=== PATIENT | male | born 1985 | race Caucasian/White ===

== ENCOUNTER 2021-06-25 10:49 | Emergency (ER) | payer OTHER ==
[~2021-06-25] VITALS: Ht 177.8 cm; Wt 97.5 kg
[~2021-06-25 10:49] MED LIST: AVAPRO150 MG; AVAPRO300 MG; COZAAR50 MG; LEVSIN0.125 MG PO; PROTONIX40 MG PO
== END 2021-06-25 14:19 | disposition home or self-care (01) ==
LOC: ER 10:49
DX: R42 Dizziness and giddiness (principal); I10 Essential (primary) hypertension

== ENCOUNTER 2022-07-25 08:58 | Emergency (ER) | payer OTHER ==
[~2022-07-25] VITALS: Ht 177.8 cm; Wt 85.3 kg
== END 2022-07-25 09:53 | disposition home or self-care (01) ==
LOC: ER 08:58
DX: J32.9 Chronic sinusitis, unspecified (principal)

== ENCOUNTER 2023-06-11 12:10 | Emergency (ER) | payer OTHER ==
[~2023-06-11] VITALS: Ht 177.8 cm; Wt 85.3 kg
[2023-06-11] MEDS ORDERED: KETOROLAC TROMETHAMINE 30 MG VIAL IM STA (12:28)
== END 2023-06-11 12:45 | disposition home or self-care (01) ==
LOC: ER 12:11
DX: M25.512 Pain in left shoulder (principal)

== ENCOUNTER 2024-06-20 08:29 | Emergency (ER) | payer OTHER ==
[~2024-06-20] VITALS: Ht 177.8 cm; Wt 88.5 kg
[2024-06-20] MEDS ORDERED: FAMOtidine 10 MG/ML (4ML VIAL) IV ONE (09:45)
[2024-06-20] MEDS ORDERED: 0.9 % SODIUM CHLORIDE 1,000 ML IV ONE (09:45)
[2024-06-20] MEDS ORDERED: ONDANSETRON HCL 2 MG/ML VIAL IV ONE (09:45)
[2024-06-20 10:40] LABS: HEMATOCRIT 44.8 % (39.0-48.0); MEAN CELL VOLUME 81.9 fL (80.0-100.00); MEAN CORPUSCULAR HEMOGLOBIN 27.4 pg (27.00-32.0); MEAN CORPUSCULAR HGB CONC 33.4 g/dl (32.0-36.0); PLATELET COUNT 214 K/uL (150-450); RED BLOOD COUNT 5.47 M/uL (4.00-6.00); RED CELL DISTRIBUTION WIDTH 13.5 % (11.5-14.5)
[2024-06-20 12:12] LABS: ALBUMIN 4.3 gm/dL (3.4-5.0); BILIRUBIN TOTAL 0.58 mg/dL (0.3-1.2); CREATININE SERUM 0.86 mg/dL (0.70-1.30); GFR 99.52; POTASSIUM 4.44 mEq/L (3.5-5.1); TOTAL PROTEIN 7.3 gm/dL (6.4-8.2)
[2024-06-20] MEDS ORDERED: PEPCID AC20 MG PO (12:28)
[2024-06-20] MEDS ORDERED: ZOFRAN8 MG PO (12:28)
== END 2024-06-20 13:27 | disposition home or self-care (01) ==
LOC: ER 08:30
PROVIDERS: General Practice
DX: J00 Acute nasopharyngitis [common cold] (principal); Z20.822 Contact with and (suspected) exposure to COVID-19; I10 Essential (primary) hypertension